=== PATIENT | female | born 1985 | race Caucasian/White ===

== ENCOUNTER 2016-07-26 08:11 | Outpatient (CLI) | payer OTHER ==
[2016-07-26 09:13] LABS: BASOPHILS % 0.2 (0.0-1.5); EOSINOPHILS % 0.1 % (0.0-6.8); MEAN CORPUSCULAR HEMOGLOBIN 29.8 pg (28.0-34.0); MONOCYTES # 0.3 # k/uL (0.0-0.9); MONOCYTES % 5.4 % (0.0-11.0)
== END 2016-07-26 08:12 ==
LOC: LAB 08:11
PROVIDERS: ATTEND Nurse Practitioner Psychiatric/Mental Health
DX: Z51.81 Encounter for therapeutic drug level monitoring (principal); Z79.899 Other long term (current) drug therapy
CPT/HCPCS: 36415; 85025

== ENCOUNTER 2016-08-18 08:40 | Outpatient (CLI) | payer OTHER ==
[2016-08-18 09:11] LABS: BASOPHILS % 0.1 (0.0-1.5); EOSINOPHILS % 0.1 % (0.0-6.8); LYMPHOCYTES # 2.7 # k/uL (0.6-4.0); MEAN CORPUSCULAR HEMOGLOBIN 31.7 pg (28.0-34.0); MONOCYTES # 0.4 # k/uL (0.0-0.9); MONOCYTES % 5.5 % (0.0-11.0); NEUTROPHILS # 3.4 # k/uL (1.4-7.7)
== END 2016-08-18 08:42 ==
LOC: LAB 08:40
PROVIDERS: ATTEND Nurse Practitioner Psychiatric/Mental Health
DX: Z51.81 Encounter for therapeutic drug level monitoring (principal); Z79.899 Other long term (current) drug therapy
CPT/HCPCS: 36415; 80159; 85025

== ENCOUNTER 2016-10-18 08:58 | Outpatient (CLI) | payer OTHER ==
[2016-10-18 09:37] LABS: BASOPHILS % 0.2 (0.0-1.5); MEAN CORPUSCULAR HEMOGLOBIN 31.1 pg (28.0-34.0); MEAN CORPUSCULAR VOLUME 94.2 fl (80.0-100.0); MONOCYTES % 3.8 % (0.0-11.0)
[2016-10-18 10:05] LABS: eGFR (African) > 60; eGFR (Non-African) > 60
== END 2016-10-18 09:00 ==
LOC: LAB 08:58
PROVIDERS: ATTEND Nurse Practitioner Psychiatric/Mental Health
DX: Z51.81 Encounter for therapeutic drug level monitoring (principal); Z79.899 Other long term (current) drug therapy
CPT/HCPCS: 36415; 80053; 85025

== ENCOUNTER 2016-11-17 09:16 | Outpatient (CLI) | payer OTHER ==
[2016-11-17 10:57] LABS: BASOPHILS % 0.2 (0.0-1.5); MEAN CORPUSCULAR HEMOGLOBIN 30.3 pg (28.0-34.0); MEAN CORPUSCULAR VOLUME 93.9 fl (80.0-100.0); MONOCYTES % 2.7 % (0.0-11.0); NEUTROPHILS # 5.3 # k/uL (1.4-7.7)
== END 2016-11-17 09:17 ==
LOC: LAB 09:16
PROVIDERS: ATTEND Nurse Practitioner Psychiatric/Mental Health
DX: Z51.81 Encounter for therapeutic drug level monitoring (principal); Z79.899 Other long term (current) drug therapy
CPT/HCPCS: 36415; 80159; 85025

== ENCOUNTER 2016-12-15 09:54 | Outpatient (CLI) | payer OTHER ==
[2016-12-15 10:26] LABS: BASOPHILS % 0.2 (0.0-1.5); MEAN CORPUSCULAR HEMOGLOBIN 30.2 pg (28.0-34.0); MEAN CORPUSCULAR VOLUME 92.5 fl (80.0-100.0); MONOCYTES % 4.7 % (0.0-11.0); NEUTROPHILS # 4.5 # k/uL (1.4-7.7)
== END 2016-12-15 09:55 ==
LOC: LAB 09:54
PROVIDERS: ATTEND Nurse Practitioner Psychiatric/Mental Health
DX: Z51.81 Encounter for therapeutic drug level monitoring (principal)
CPT/HCPCS: 36415; 80159; 85025

== ENCOUNTER 2017-01-19 09:33 | Outpatient (CLI) | payer OTHER ==
[2017-01-19 10:31] LABS: BASOPHILS % 0.2 (0.0-1.5); EOSINOPHILS % 0.1 % (0.0-6.8); MEAN CORPUSCULAR HEMOGLOBIN 30.7 pg (28.0-34.0); MEAN CORPUSCULAR VOLUME 93.5 fl (80.0-100.0); MONOCYTES % 3.4 % (0.0-11.0); NEUTROPHILS # 7.8 # k/uL (1.4-7.7)
== END 2017-01-19 09:34 ==
LOC: LAB 09:33
PROVIDERS: ATTEND Nurse Practitioner Psychiatric/Mental Health
DX: Z51.81 Encounter for therapeutic drug level monitoring (principal)
CPT/HCPCS: 36415; 80159; 85025

== ENCOUNTER 2017-02-16 09:17 | Outpatient (CLI) | payer OTHER ==
[2017-02-16 09:42] LABS: BASOPHILS % 0.4 (0.0-1.5); EOSINOPHILS % 0.2 % (0.0-6.8); MEAN CORPUSCULAR HEMOGLOBIN 30.8 pg (28.0-34.0); MEAN CORPUSCULAR VOLUME 94.4 fl (80.0-100.0); MONOCYTES % 3.8 % (0.0-11.0); NEUTROPHILS # 3.2 # k/uL (1.4-7.7)
== END 2017-02-16 09:27 ==
LOC: LAB 09:17
PROVIDERS: ATTEND Nurse Practitioner Psychiatric/Mental Health
DX: Z51.81 Encounter for therapeutic drug level monitoring (principal)
CPT/HCPCS: 36415; 80159; 85025

== ENCOUNTER 2017-03-02 08:48 | Outpatient (CLI) | payer OTHER ==
[2017-03-02 09:17] LABS: BASOPHILS % 0.4 (0.0-1.5); EOSINOPHILS % 0.2 % (0.0-6.8); MEAN CORPUSCULAR HEMOGLOBIN 30.5 pg (28.0-34.0); MEAN CORPUSCULAR VOLUME 94.5 fl (80.0-100.0); MONOCYTES % 5.4 % (0.0-11.0); NEUTROPHILS # 2.9 # k/uL (1.4-7.7)
== END 2017-03-02 08:50 ==
LOC: LAB 08:48
PROVIDERS: ATTEND Nurse Practitioner Psychiatric/Mental Health
DX: Z79.899 Other long term (current) drug therapy (principal)
CPT/HCPCS: 36415; 80159; 85025

== ENCOUNTER 2017-03-16 08:31 | Outpatient (CLI) | payer OTHER ==
[2017-03-16 08:57] LABS: BASOPHILS % 0.3 (0.0-1.5); EOSINOPHILS % 0.7 % (0.0-6.8); MEAN CORPUSCULAR HEMOGLOBIN 30.5 pg (28.0-34.0); MEAN CORPUSCULAR VOLUME 91.1 fl (80.0-100.0); MONOCYTES % 4.6 % (0.0-11.0); NEUTROPHILS # 4.6 # k/uL (1.4-7.7)
[2017-03-16 09:24] LABS: eGFR (African) > 60; eGFR (Non-African) > 60
== END 2017-03-16 08:32 ==
LOC: LAB 08:31
PROVIDERS: ATTEND Nurse Practitioner Psychiatric/Mental Health
DX: Z79.899 Other long term (current) drug therapy (principal)
CPT/HCPCS: 36415; 80053; 80159; 84443; 85025

== ENCOUNTER 2017-04-25 08:56 | Outpatient (CLI) | payer MEDICARE, OTHER ==
[2017-04-25 09:39] LABS: BASOPHILS % 0.2 (0.0-1.5); EOSINOPHILS % 0.7 % (0.0-6.8); MEAN CORPUSCULAR HEMOGLOBIN 29.3 pg (28.0-34.0); MEAN CORPUSCULAR VOLUME 89.8 fl (80.0-100.0); NEUTROPHILS # 6.5 # k/uL (1.4-7.7)
[2017-04-25 10:04] LABS: eGFR (African) > 60; eGFR (Non-African) > 60
== END 2017-04-25 08:57 ==
LOC: LAB 08:56
PROVIDERS: ATTEND Nurse Practitioner Psychiatric/Mental Health
DX: Z51.81 Encounter for therapeutic drug level monitoring (principal)
CPT/HCPCS: 36415; 80053; 80159; 85025

== ENCOUNTER 2017-05-18 08:54 | Outpatient (CLI) | payer MEDICARE, OTHER ==
[2017-05-18 09:31] LABS: BASOPHILS % 0.3 (0.0-1.5); MEAN CORPUSCULAR VOLUME 90.7 fl (80.0-100.0); MONOCYTES % 4.5 % (0.0-11.0); NEUTROPHILS # 4.6 # k/uL (1.4-7.7)
== END 2017-05-18 08:55 ==
LOC: LAB 08:54
PROVIDERS: ATTEND Nurse Practitioner Psychiatric/Mental Health
DX: Z51.81 Encounter for therapeutic drug level monitoring (principal); Z79.899 Other long term (current) drug therapy
CPT/HCPCS: 36415; 80159; 85025

== ENCOUNTER → 2017-06-15 | Outpatient (CLI) | payer MEDICARE, OTHER ==
[2017-06-15 08:54] LABS: BASOPHILS % 0.2 (0.0-1.5); MEAN CORPUSCULAR VOLUME 90.6 fl (80.0-100.0); NEUTROPHILS # 5.6 # k/uL (1.4-7.7)
== END ==
LOC: LAB 08:27
PROVIDERS: ATTEND Nurse Practitioner Psychiatric/Mental Health
DX: Z51.81 Encounter for therapeutic drug level monitoring (principal)
CPT/HCPCS: 36415; 80159; 85025

== ENCOUNTER 2017-07-20 09:13 | Outpatient (CLI) | payer MEDICARE, OTHER ==
[2017-07-20 12:04] LABS: BASOPHILS % 0.3 (0.0-1.5); MEAN CORPUSCULAR HEMOGLOBIN 29.3 pg (28.0-34.0); MEAN CORPUSCULAR VOLUME 93.5 fl (80.0-100.0); MONOCYTES % 5.4 % (0.0-11.0); NEUTROPHILS # 3.8 # k/uL (1.4-7.7)
== END 2017-07-20 09:14 ==
LOC: LAB 09:13
PROVIDERS: ATTEND Nurse Practitioner Psychiatric/Mental Health
DX: Z79.899 Other long term (current) drug therapy (principal)
CPT/HCPCS: 36415; 80159; 85025

== ENCOUNTER 2017-08-17 08:57 | Outpatient (CLI) | payer OTHER ==
[2017-08-17 10:23] LABS: BASOPHILS % 0.3 (0.0-1.5); MEAN CORPUSCULAR HEMOGLOBIN 29.3 pg (28.0-34.0); MEAN CORPUSCULAR VOLUME 92.7 fl (80.0-100.0); MONOCYTES % 4.1 % (0.0-11.0)
== END 2017-08-17 09:00 ==
LOC: LAB 08:57
PROVIDERS: ATTEND Nurse Practitioner Psychiatric/Mental Health
DX: Z79.899 Other long term (current) drug therapy (principal); Z51.81 Encounter for therapeutic drug level monitoring
CPT/HCPCS: 36415; 80159; 85025

== ENCOUNTER 2017-09-14 09:17 | Outpatient (CLI) | payer OTHER ==
[2017-09-14 21:31] LABS: BASO % 0.3 % (0.0-1.5); EOS % 0.1 % (0.0-6.8); LYMPH ABS # 3.43 thou/uL (0.60-4.00); MCH. 28.8 pg (28.0-34.0); MONOCYTE % 7.3 % (0.0-11.0); PLATELET COUNT 354 thou/uL (130-400)
== END 2017-09-14 11:23 ==
LOC: LAB 09:17
PROVIDERS: ATTEND Nurse Practitioner Psychiatric/Mental Health
DX: Z79.899 Other long term (current) drug therapy (principal)
CPT/HCPCS: 36415; 85025

== ENCOUNTER 2017-10-23 09:04 | Outpatient (CLI) | payer OTHER ==
[2017-10-23 10:09] LABS: BASOPHILS % 0.3 (0.0-1.5); MEAN CORPUSCULAR HEMOGLOBIN 29.2 pg (28.0-34.0); MEAN CORPUSCULAR VOLUME 93.3 fl (80.0-100.0); MONOCYTES % 4.5 % (0.0-11.0); NEUTROPHILS # 3.9 # k/uL (1.4-7.7)
[2017-10-23 10:32] LABS: eGFR (African) > 60; eGFR (Non-African) > 60
== END 2017-10-23 09:06 ==
LOC: LAB 09:04
PROVIDERS: ATTEND Psychiatry & Neurology Psychiatry
DX: Z79.899 Other long term (current) drug therapy (principal)
CPT/HCPCS: 36415; 80053; 80159; 84443; 85025

== ENCOUNTER 2017-11-16 08:49 | Outpatient (CLI) | payer OTHER ==
[2017-11-16 09:47] LABS: BASOPHILS % 0.1 (0.0-1.5); EOSINOPHILS % 0.1 % (0.0-6.8); MEAN CORPUSCULAR HEMOGLOBIN 28.8 pg (28.0-34.0); MEAN CORPUSCULAR VOLUME 90.5 fl (80.0-100.0); MONOCYTES % 4.1 % (0.0-11.0); NEUTROPHILS # 3.4 # k/uL (1.4-7.7)
== END 2017-11-16 08:50 ==
LOC: LAB 08:49
PROVIDERS: ATTEND Family Medicine
DX: Z51.81 Encounter for therapeutic drug level monitoring (principal); Z79.899 Other long term (current) drug therapy
CPT/HCPCS: 36415; 80159; 85025

== ENCOUNTER 2017-12-14 09:04 | Outpatient (CLI) | payer OTHER ==
[2017-12-14 09:42] LABS: BASOPHILS % 0.1 (0.0-1.5); EOSINOPHILS % 0.2 % (0.0-6.8); MEAN CORPUSCULAR HEMOGLOBIN 28.8 pg (28.0-34.0); MEAN CORPUSCULAR VOLUME 90.8 fl (80.0-100.0); MONOCYTES % 3.8 % (0.0-11.0); NEUTROPHILS # 4.7 # k/uL (1.4-7.7)
== END 2017-12-14 09:05 ==
LOC: LAB 09:04
PROVIDERS: ATTEND Nurse Practitioner Family
DX: Z79.899 Other long term (current) drug therapy (principal); Z51.81 Encounter for therapeutic drug level monitoring
CPT/HCPCS: 36415; 80159; 85025

== ENCOUNTER 2018-01-18 09:44 | Outpatient (CLI) | payer OTHER ==
[2018-01-18 10:52] LABS: BASOPHILS % 0.1 (0.0-1.5); MEAN CORPUSCULAR HEMOGLOBIN 29.5 pg (28.0-34.0); MEAN CORPUSCULAR VOLUME 91.5 fl (80.0-100.0); MONOCYTES % 3.6 % (0.0-11.0)
== END 2018-01-18 09:49 ==
LOC: LAB 09:44
PROVIDERS: ATTEND Family Medicine
DX: Z51.81 Encounter for therapeutic drug level monitoring (principal); Z79.899 Other long term (current) drug therapy
CPT/HCPCS: 36415; 80159; 85025

== ENCOUNTER 2018-02-19 09:13 | Outpatient (CLI) | payer OTHER ==
[2018-02-19 09:56] LABS: BASOPHILS % 0.2 (0.0-1.5); MEAN CORPUSCULAR HEMOGLOBIN 28.6 pg (28.0-34.0); MEAN CORPUSCULAR VOLUME 87.9 fl (80.0-100.0); MONOCYTES % 3.6 % (0.0-11.0); NEUTROPHILS # 6.7 # k/uL (1.4-7.7)
== END 2018-02-19 12:43 ==
LOC: LAB 09:13
PROVIDERS: ATTEND Psychiatry & Neurology Psychiatry
DX: Z51.81 Encounter for therapeutic drug level monitoring (principal); Z79.899 Other long term (current) drug therapy
CPT/HCPCS: 36415; 84443; 85025

== ENCOUNTER 2018-03-21 08:09 | Outpatient (CLI) | payer OTHER ==
[2018-03-21 18:21] LABS: BASO % 0.2 % (0.0-1.5); LYMPH ABS # 2.44 thou/uL (0.60-4.00); MCH. 28.9 pg (28.0-34.0); MONOCYTE % 5.5 % (0.0-11.0); MONOCYTE ABS # 0.49 thou/uL (0.00-0.90); PLATELET COUNT 318 thou/uL (130-400)
== END 2018-03-21 08:10 ==
LOC: LAB 08:09
PROVIDERS: ATTEND Family Medicine
DX: Z51.81 Encounter for therapeutic drug level monitoring (principal); Z79.899 Other long term (current) drug therapy
CPT/HCPCS: 36415; 80159; 85025

== ENCOUNTER 2018-04-23 08:28 | Outpatient (CLI) | payer OTHER ==
[2018-04-23 11:34] LABS: eGFR (Non-African) > 60
[2018-04-23 11:36] LABS: BASOPHILS % 0.4 (0.0-1.5); EOSINOPHILS % 0.6 % (0.0-6.8); MEAN CORPUSCULAR HEMOGLOBIN 28.7 pg (28.0-34.0); MONOCYTES % 6.6 % (0.0-11.0); NEUTROPHILS # 3.9 # k/uL (1.4-7.7)
== END 2018-04-23 08:30 ==
LOC: LAB 08:28
PROVIDERS: ATTEND Psychiatry & Neurology Psychiatry
DX: Z51.81 Encounter for therapeutic drug level monitoring (principal); Z79.899 Other long term (current) drug therapy
CPT/HCPCS: 36415; 80053; 80159; 85025

== ENCOUNTER 2018-05-22 08:40 | Outpatient (CLI) | payer OTHER ==
[2018-05-22 10:10] LABS: MEAN CORPUSCULAR HEMOGLOBIN 28.8 pg (28.0-34.0)
[2018-05-22 10:11] LABS: BASOPHILS % 0.3 (0.0-1.5); EOSINOPHILS % 0.6 % (0.0-6.8); MONOCYTES % 4.9 % (0.0-11.0); NEUTROPHILS # 6.6 # k/uL (1.4-7.7)
== END 2018-05-22 08:42 ==
LOC: LAB 08:40
PROVIDERS: ATTEND Psychiatry & Neurology Psychiatry
DX: Z79.899 Other long term (current) drug therapy (principal)
CPT/HCPCS: 36415; 85025

== ENCOUNTER 2018-06-06 11:44 | Outpatient (CLI) | payer OTHER | END 2018-06-06 11:45 | LOC: LAB 11:44 | PROVIDERS: ATTEND Nurse Practitioner Family | DX: R19.7 Diarrhea, unspecified (principal); Z79.899 Other long term (current) drug therapy | CPT/HCPCS: 87177; 87329; 87493; 89055 ==

== ENCOUNTER 2018-06-21 09:17 | Outpatient (CLI) | payer OTHER ==
[2018-06-21 09:46] LABS: BASOPHILS % 0.3 (0.0-1.5); EOSINOPHILS % 0.5 % (0.0-6.8); MEAN CORPUSCULAR HEMOGLOBIN 28.4 pg (28.0-34.0); MONOCYTES % 6.9 % (0.0-11.0)
== END 2018-06-21 09:25 ==
LOC: LAB 09:17
PROVIDERS: ATTEND Psychiatry & Neurology Psychiatry
DX: Z79.899 Other long term (current) drug therapy (principal); Z51.81 Encounter for therapeutic drug level monitoring
CPT/HCPCS: 36415; 80159; 85025

== ENCOUNTER 2018-07-26 09:00 | Outpatient (CLI) | payer MEDICARE, OTHER ==
[2018-07-26 10:33] LABS: BASOPHILS % 0.5 (0.0-1.5); EOSINOPHILS % 0.7 % (0.0-6.8); MONOCYTES % 5.4 % (0.0-11.0); NEUTROPHILS # 4.3 # k/uL (1.4-7.7)
== END 2018-07-26 09:05 ==
LOC: LAB 09:00
PROVIDERS: ATTEND Psychiatry & Neurology Psychiatry
DX: Z79.899 Other long term (current) drug therapy (principal); Z51.81 Encounter for therapeutic drug level monitoring
CPT/HCPCS: 36415; 80159; 85025

== ENCOUNTER 2019-03-27 13:39 | Outpatient (CLI) | payer OTHER ==
[2019-03-27 14:12] LABS: SEGMENTED NEUTROPHILS % 57 % (39-79)
== END 2019-03-27 13:42 ==
LOC: LAB 13:39
PROVIDERS: ATTEND Psychiatry & Neurology Psychiatry
DX: Z51.81 Encounter for therapeutic drug level monitoring (principal); R79.9 Abnormal finding of blood chemistry, unspecified; Z79.01 Long term (current) use of anticoagulants
CPT/HCPCS: 36415; 80159; 85025